=== PATIENT | female | born 1990 | race Caucasian/White ===

== ENCOUNTER → 2021-11-04 | Outpatient (CLI) | payer OTHER, SELFPAY ==
--- NOTE | 2021-11-04 15:50 | VDLE_ITS ---
Reason For Study: Pain and swelling RIGHT GSV is normal. CFV is compressible, spontaneous, phasic, competent and demonstrates normal augmentation. FV is compressible, spontaneous, phasic, competent and demonstrates normal augmentation. POP V is compressible, spontaneous, phasic, competent and demonstrates normal augmentation. T/P Trunk is compressible. PTV is compressible. RT PerV is compressible. Procedure This is a venous duplex using B-mode, color flow and spectral Doppler. Exam performed in department. A preliminary report was called and/or faxed to S[facility]. VL/Venous Duplex US, Unilateral Interpretation Summary There is no evidence of right lower extremity deep vein thrombosis. Right great saphenous vein appears patent and compressible segmentally. Ordering Physician: Mia Espino Performed By: Nataliia Benjamin RVT
== END | disposition home or self-care (01) ==
PROVIDERS: Referring Provider Obstetrics & Gynecology; Visit Provider Obstetrics & Gynecology
DX: M79.604 Pain in right leg (principal); M79.89 Other specified soft tissue disorders
CPT/HCPCS: 93971

== ENCOUNTER 2021-12-31 12:00 | Inpatient (IN) | payer OTHER, SELFPAY ==
[2021-12-31] VITALS (25 sets, daily range): BP systolic 113–144; BP diastolic 63–81; PULSE 88–127; TEMP 36.5–37.4; O2SAT 97–100; BMI 30.8
[2021-12-31 11:56] LABS: ROM Internal Control Test YES-OK TO RESULT pt. (Internal QC)
[2021-12-31 11:57] LABS: ROM Patient Test POSITIVE (Negative)
[2021-12-31] MEDS: 0.9% Saline Lock 10 ML Syringe IV (12:45)
[2021-12-31 13:02] LABS: Absolute Lymphocyte Count 1.38 X10^3/uL (0.83-4.51); Absolute Neutrophil Count 11.1 X10^3/uL (2.0-7.7); Basophil# 0.05 X10^3/uL; Basophil% 0.4 % (0-1); Eosinophils% 0.7 % (0-5); Hematocrit 39.6 % (37-47); Hemoglobin 13.1 g/dL (12.0-15.0); Lymphocyte # 1.38 X10^3/ul (0.83-4.51); Lymphocyte % 10.1 % (19-41); Mean Corp Hgb Conc 33.1 g/dL (32-36); Mean Corpuscular Hgb 29.6 pg (27.0-32.0); Mean Corpuscular Volume 89.6 fL (81-99); Mean Platelet Vol. 9.3 fl (6.2-12.0); Monocyte# 0.93 X10^3/uL; Monocyte% 6.8 % (0-10); NRBC Flagged by Analyzer 0 % (0-5); Neutrophil # 11.11 X10^3/uL (2.7-7.7); Neutrophil % 81.3 % (47-70); Platelet Count 257 K/mm3 (150-450); RBC Distribution Width CV 13.8 % (11.6-14.6); RBC Distribution Width SD 44.8 fl (35.1-43.9); Red Blood Count 4.42 M/mm3 (4.2-5.4); White Blood Count 13.7 K/mm3 (4.4-11.0)
--- NOTE | 2021-12-31 17:35 | PCM.HP.OB ---
HPI - General General Date of Admission: 12/31/21 HPI Narrative СЕРГЕЙ MCKENZIE, is a 31 F at 40w4d who presents with SROM around 10 am. Contractions increased in pain and intensity and presented to labor and delivery. [facility] Medical History (Updated 12/31/21 @ 17:40 by Melvi Resendiz CNM) Thalassemia carrier Home Medications vit no.37-iron fum 29 mg iron-folic acid 1 mg chewable tablet (PreNata) 1 tab PO DAILY 12/31/21 [History Last Taken 12/31/21 08:00] Allergy/AdvReac Type Severity Reaction Status Date / Time amoxicillin Allergy Severe Rash Verified 07/11/21 12:07 Surgical History History of surgery Social History Smoking Status: Never smoker History Elective abortions Hx Para 0 Spontaneous abortions Hx # Term Pregnancies Ectopic pregnancies Hx # Pregnancies Multiple births # of living children NST FHR Rate Baby A Baseline: 135, increases, no decreases. Category 1 IA Uterine Activity:: every 2-4 minutes, strong ROS Constitutional Constitutional: Reports systems reviewed and no addt'l complaints, except as documented; Denies headache(s) Eyes Eyes: Denies acute decrease in peripheral vision, blurry vision or change in vision ENT HEENT: Reports systems reviewed and no addt'l complaints, except as documented Cardiovascular Cardiovascular: Denies chest pain or dizziness Respiratory/Chest Respiratory/Chest: Denies cough, dyspnea, dyspnea on exertion, shortness of breath at rest or shortness of breath with exertion Gastrointestinal Gastrointestinal: Denies abdominal pain, diarrhea, nausea or vomiting Genitourinary Genitourinary: Denies abdominal discomfort or movement Musculoskeletal Musculoskeletal: Denies limited range of motion Integumentary Integumentary: Reports systems reviewed and no addt'l complaints, except as documented Neurologic Neurologic: Reports systems reviewed and no addt'l complaints, except as documented Psychiatric Psychiatric: Reports systems reviewed and no addt'l complaints, except as documented Endocrine Endocrinology: Reports systems reviewed and no addt'l complaints, except as documented Hematologic/Lymphatic Hematologic/Lymphatic: Reports systems reviewed and no addt'l complaints, except as documented Allergic/Immunologic Allergic/Immunologic: Reports systems reviewed and no addt'l complaints, except as documented Vital Signs Vital Signs Vital Signs: 12/31/21 11:36 12/31/21 11:36 12/31/21 11:34 Temperature Temperature Source Temporal Pulse Rate 102 H Blood Pressure 128/80 H BP Systolic 128 BP Diastolic 80 Pulse Ox 12/31/21 11:34 12/31/21 11:34 12/31/21 13:43 Temperature 98.7 F Temperature Source Pulse Rate Blood Pressure 138/63 H BP Systolic 138 BP Diastolic 63 Pulse Ox 98 12/31/21 13:43 12/31/21 13:44 12/31/21 13:44 Temperature Temperature Source Temporal Pulse Rate 91 Blood Pressure BP Systolic BP Diastolic Pulse Ox 98 12/31/21 13:44 12/31/21 14:21 12/31/21 14:21 Temperature 98.3 F Temperature Source Pulse Rate 88 Blood Pressure 139/76 H BP Systolic 139 BP Diastolic 76 Pulse Ox 12/31/21 14:21 12/31/21 14:22 12/31/21 14:22 Temperature Temperature Source Temporal Pulse Rate Blood Pressure BP Systolic BP Diastolic Pulse Ox 97 97 12/31/21 14:22 12/31/21 16:02 12/31/21 16:02 Temperature 97.7 F L Temperature Source Pulse Rate 102 H Blood Pressure 128/71 H BP Systolic 128 BP Diastolic 71 Pulse Ox 12/31/21 16:04 12/31/21 16:04 12/31/21 16:01 Temperature Temperature Source Temporal Pulse Rate 101 H Blood Pressure BP Systolic BP Diastolic Pulse Ox 98 12/31/21 16:01 12/31/21 16:01 12/31/21 16:44 Temperature 97.9 F Temperature Source Pulse Rate Blood Pressure 119/67 BP Systolic 119 BP Diastolic 67 Pulse Ox 98 12/31/21 16:44 12/31/21 16:43 12/31/21 16:43 Temperature Temperature Source Temporal Pulse Rate 127 H Blood Pressure BP Systolic BP Diastolic Pulse Ox 98 12/31/21 16:43 Temperature 98.4 F Temperature Source Pulse Rate Blood Pressure BP Systolic BP Diastolic Pulse Ox Weight Weight: 197 lb Body Mass Index (BMI) 30.8 Physical Exam Const alert and oriented x3 General Appearance: cooperative Orientation / Consciousness: awake, oriented to person, oriented to place and oriented to time Exam Limitations: no limitations HEENT normocephalic Head and Scalp: normal to inspection, normocephalic and atraumatic Face and Sinus: normal facial exam Eyes General Eye: normal appearance of both eyes Neck full ROM Chest Chest: symmetrical chest wall rise Resp normal respiratory effort and normal air movement Auscultation: clear to auscultation bilaterally Cardio regular rate, regular rhythm, S1 normal heart sound, S2 normal heart sound, no murmurs, no rub, no gallops and no clicks GI normal to inspection, nondistended, normoactive bowel sounds and non-tender appearance of the vagina normal Narrative: 3cm/80%/-2 per nursing exam. ROM plus positive Bladder / Kidney Exam: no CVA tenderness Back/Spine normal ROM Extremity normal to inspection and full ROM Skin no rashes or lesions noted Neuro oriented x3, CN's II-XII intact bilaterally and moves all extremities Sensorium / Orientation: awake, alert and oriented to person Motor Exam: clonus absent Deep Tendon Reflexes: Rt Patellar (L4): 2+ and Lt Patellar (L4): 2+ Labs Labs Labs: Blood Type O POSITIVE Antibody Screen NEGATIVE Hct 39.6 % (37-47) Hgb 13.1 g/dL (12.0-15.0) Hep C positive, Hep C confirmation screen negative HepB negative HIV negative RPR negative O positive GC/CT negative GBS negative Rubella Immune Assessment & Plan (1) SROM (spontaneous rupture of membranes): (2) Term : PLAN: Plan 1) Admit to labor and delivery 2) Routine labs 3) IV saline lock 4) IA after reactive NST 5) Would like expectant management, declines pitocin at this time 6) Would like unmedicated , hydrotherapy and nitrous for pain relief 7) collaborative physician and updated on patient status and plan of care.
[2022-01-01] VITALS (52 sets, daily range): BP systolic 94–253; BP diastolic 54–167; PULSE 77–137; RESP 16–18; TEMP 36.2–37.8; O2SAT 81–99
[2022-01-01] MEDS: LACTATED RINGERS 500 ML 999 ML IV (03:32)
[2022-01-01] MEDS: Lactated Ringers 1,000 ML 200 ML IV ×2 (03:32→09:54)
[2022-01-01] MEDS: fentaNYL-bupivacaine (epidural) 100 ML BAG EPIDURAL ×2 (04:35→08:47)
--- NOTE | 2022-01-01 11:50 | PCM.PN.BLA ---
Progress Note See delivery note by Faraz Resendiz. I was called to evaluate patient for possible vacuum-assisted delivery. Patient pushing at +3 station meconium fluid. heart rate tracing with recurrent late and variable decelerations. Patient was counseled on vacuum use including but not limited to vaginal lacerations, scalp lacerations, brain bleed. Patient agreed to proceed. Patient has epidural anesthesia that is adequate. Silva catheter is draining the bladder. Fetus is in the DILSHAD position. Estimated weight 8 pounds. Vaginal exam adequate pelvic exam. The vacuum was placed on the flexion point. The vacuum was then pumped up to the green zone 500 mmHg- pt had good maternal pushing efforts. Total 2 pulls with 2 contractions. No pop offs. The 's head was delivered the vacuum was removed and at this time certified nurse preschool teacher aide Faraz Resendiz took over delivery. Please see her OB delivery note for further details.
[2022-01-01] MEDS: Oxytocin 30 units/NS 500 ml 30 UNITS/500 ML IV.SOLN 334 UNITS IV (11:52)
--- NOTE | 2022-01-01 12:15 | EX.PCM.OBRPT ---
Assessment & Plan (1) Vacuum extractor delivery, delivered: (2) Second degree laceration of perineum, delivered, current hospitalization: COMMENT: acute blood loss anemia, check CBC later today. patient workig on . Desires d/c later today if ok w/ peds (3) Vaginal delivery: Maternal Data Information Final STEFANO: 12/27/21 Vaginal Delivery Operative Information Date of Procedure: 01/01/22 Pre-Operative Diagnosis: active labor Post-Operative Diagnosis: Surgery / Procedure Performed: Spontaneous Vaginal Delivery Type of Anesthesia: Epidural Estimated Blood Loss: 400 ml Time of Delivery: 11:47 Findings Description of Procedure: Progressed to complete dilation with urge to push. After extended pushing efforts, +3 station, FHT with minimal variability and late/variable decelerations. collaborative physician called for vacuum extraction due to need for further pushing efforts. Ship Construction Teacher and respiratory called to delivery for VAVD and meconium stained fluid. Vaginal vacuum extraction of head by and remainder of delivered by me. VAVD of viable male infant over 2nd degree perineal laceration. head delivered with body forthcoming after improved maternal pushing efforts. Infant placed on maternal abdomen, mouth and nares suctioned for secretions, strong cry and vigorous. Cord gases obtained. Pitocin started for active 3rd stage management with patient consent. Cord clamped and cut after pulsations ceased by FOB. Placenta delivered intact via amy, 3 vessel cord, send to pathology. Perineum inspected and revealed 2nd degree perineal laceration. Repaired under epidural analgesia and 3.0 vicryl rapide. vaginal sweep completed. sponge and instrument count correct. EBL 400ml and hemostasis achieved. Mom and baby stable, planning to breastfeed, family bonding well. Presentation: TRUDY Amniotic Membrane Rupture Type: Spontaneous Amniotic Fluid Description: Lightly stained meconium Placental Delivery Description: Spontaneous Placenta Disposition: Sent to Pathology Cord Vessel Description: 3 Vessels Cord Entanglement: None Infant A Gender: Male (1 minute): 8 (5 minute): 9 Delayed Cord Clamping: Yes Post Vaginal Delivery Medications Given After Delivery: IV Pitocin Episiotomy Description: None Laceration: 2nd degree Complication Complications: - (Vacuum extraction )
--- NOTE | 2022-01-01 12:16 | PLAC_PTH ---
PATIENT: СЕРГЕЙ MCKENZIE LOC: [facility] U#:[id number] AGE/SX: 31/F ROOM: WP021 RE12/31/[address]: Dr. Orquidea Collins, MDDOB: 1990 BED: 1 DIS: 01/02/2022 SPEC #: [id number] RECD: 01/01/22 13:03 STATUS: FLORES JARETT #: [id number] ERIK: 01/01/22 12:[address]: Orquidea Collins DEPT: SURGICAL PATHOLOGY RECD BY: [place] Sylvester ENTERED: 01/02/22 07:15 SP TYPE: PLACENTA OT DR: No Primary Care Phys Tissues: Placenta, NOS Procedures: Surgery Specimen Level V HEADER OPERATION: Vaginal delivery PRE-OP DIAGNOSIS: Meconium TISSUE SUBMITTED: Placenta MICROSCOPIC DIAGNOSIS Placenta: Placental disc - third trimester placenta (571 gm). - Moderate to marked acute vasculitis of subamniotic blood vessels. - Focal area of peripheral intraparenchymal hemorrhage (1 cm in greatest dimension). - Focal increased calcifications. Membranes ? marked acute chorioamnionitis. Umbilical cord - three blood vessels and moderate to marked acute funisitis. SJ:becky 01/03/2022 MICROSCOPIC DESCRIPTION Slides are reviewed. GROSS DESCRIPTION SPECIMEN: PLACENTA / CLINICAL INFORMATION: A. Weight: 4.055 kg B. Gestational Age: 40 weeks C. Sex: Male PLACENTAL WEIGHT (POST FIXATION): 571 gm PLACENTAL DIMENSIONS: 23 x 17 x 3 cm PLACENTAL SHAPE: Usual ovoid PLACENTAL WEIGHT FOR GESTATIONAL AGE: Within 10-99th percentile MEMBRANES - Present A. Insertion: Marginal B. Site of rupture from edge: 6 cm from edge of placental disc C. Color of membrane: green and mucoidy, consistent with meconium staining D. Abnormalities: None UMBILICAL CORD - Present A. Color: Pham-cole B. Insertion: Paracentral C. Length: 36 cm D. Diameter: 1 cm E. Number of vessels: Three F. Abnormalities: None PLACENTAL DISC - Present A. Color of surface: Pham-cole B. surface abnormalities: Membranes are greenish and consistent with meconium staining. C. Maternal cotyledons: Intact with minimal tears. Diffuse increased punctate calcifications are noted. D. Attached retro placental clot: No clot E. Cut surface: Dark red and spongy F. Lesions: Sections reveal a pham, indurated area in the peripheral portion of the placenta measuring 1 cm in greatest dimension. G. Separate clot: Absent SECTIONS SUBMITTED: 1. Membrane roll 2. Cord, maternal end 3. Cord, end, lesion 4. Placental disc, and maternal surfaces 5. Placental disc, and maternal surfaces 6. Placental disc, and maternal surfaces SJ:becky 01/02/2022 TC:2 CPT: 94423
[2022-01-01 13:04] LABS: Pathology Specimen OB SEE PATHOLOGY REPORT
--- NOTE | 2022-01-01 15:15 | NURSING ---
Report received from Ashley VICENTE, taking over pt care at this time.
[2022-01-01] MEDS: Ibuprofen 600 MG Tablet PO (19:38)
--- NOTE | 2022-01-01 19:48 | CM.ED ---
SW called applied technologist Elizabeth and she confirmed with patient's RN that there is NO SW consult for this patient. Leesa HUBBARD
[2022-01-02] VITALS (7 sets, daily range): BP systolic 100–121; BP diastolic 54–72; PULSE 77–98; RESP 16; TEMP 35.8–36.6
[2022-01-02 05:03] LABS: Hematocrit 29.7 % (37-47); Hemoglobin 9.9 g/dL (12.0-15.0); Mean Corp Hgb Conc 33.3 g/dL (32-36); Mean Corpuscular Hgb 29.9 pg (27.0-32.0); Mean Corpuscular Volume 89.7 fL (81-99); Platelet Count 186 K/mm3 (150-450); RBC Distribution Width CV 14.2 % (11.6-14.6); RBC Distribution Width SD 46.4 fl (35.1-43.9); Red Blood Count 3.31 M/mm3 (4.2-5.4); White Blood Count 18.9 K/mm3 (4.4-11.0)
[2022-01-02] MEDS: Ibuprofen 600 MG Tablet PO (07:40)
--- NOTE | 2022-01-02 09:53 | PCM.PN.OB ---
Subjective Subjective Pain well controlled, average lochia Objective Data Objective Data Vital Signs: Vital Signs Temp Pulse Resp BP Pulse Ox O2 Del Method 97.4 F L 98 16 116/61 98 Room Air 01/02/22 08:12 01/02/22 08:12 01/02/22 08:12 01/02/22 08:12 01/01/22 16:45 01/02/22 05:06 Oxygen Delivery Method Room Air Weight: 89.358 kg Body Mass Index (BMI) 30.8 Intake & Output: Intake and Output for Last 24 Hours 12/31/21 01/01/22 01/02/22 23:59 23:59 23:59 Intake Total 2403.33 / 2403.33 Output Total 600 / 600 Balance 1803.33 / 1803.33 Lab / Micro Data Result Diagrams: 01/02/22 04:48 Labs: Laboratory Results - last 24 hr 01/02/22 04:48: WBC 18.9 H, RBC 3.31 L, Hgb 9.9 L, Hct 29.7 L, MCV 89.7, MCH 29.9, MCHC 33.3, RDW Std Deviation 46.4 H, RDW Coeff of Megan 14.2, Plt Count 186, MPV 9.0 Micro: Microbiology 12/31/21 13:05 Nasal Secretion SARS-CoV-2 Antigen (Rapid) - Final Physical Exam Const alert and no apparent distress Narrative: Fundus firm, below umbilicus. Assessment & Plan (1) Vacuum extractor delivery, delivered: PLAN: PPD #1 s/p vacuum assisted v aginal delivery. Doing well. (2) Second degree laceration of perineum, delivered, current hospitalization: COMMENT: acute blood loss anemia, check CBC later today. patient workig on . Desires d/c later today if ok w/ peds
[2022-01-02 12:30] LABS: Hematocrit 32.1 % (37-47); Hemoglobin 10.5 g/dL (12.0-15.0); Mean Corp Hgb Conc 32.7 g/dL (32-36); Mean Corpuscular Hgb 29.9 pg (27.0-32.0); Mean Corpuscular Volume 91.5 fL (81-99); Mean Platelet Vol. 9.4 fl (6.2-12.0); Platelet Count 242 K/mm3 (150-450); RBC Distribution Width CV 14.4 % (11.6-14.6); Red Blood Count 3.51 M/mm3 (4.2-5.4); White Blood Count 17.9 K/mm3 (4.4-11.0)
--- NOTE | 2022-01-02 13:16 | DS.PCM_ITS ---
Providers Date of Admission: 12/31/21 Primary Care Physician: No Primary Care Phys Reason For Visit: LABOR AND DELIVERY VAG DEL Diagnosis Discharge Diagnosis (1) Vacuum extractor delivery, delivered: Status: Acute Code(s): O75.9 - Complication of labor and delivery, unspecified Plan: PPD #1 s/p vacuum assisted v aginal delivery. Doing well. (2) Second degree laceration of perineum, delivered, current hospitalization: Status: Acute Code(s): O70.1 - Second degree perineal laceration during delivery Medications at Discharge Home Medications vit no.37-iron fum 29 mg iron-folic acid 1 mg chewable tablet (PreNata) 1 tab PO DAILY 12/31/21 Hospital Course Operations - (Vacuum assisted vaginal delivery 01/01/22) Procedures None Summary of Care Provided Hospital Course: 31-year-old female admitted in labor. Labor progressed to complete and pushing. She then had a vacuum-assisted vaginal delivery with a second-degree laceration. Laceration was repaired. By day #1 patient was ambul ating, urinating tolerating regular diet. She had mild acute blood loss anemia. Patient was stable and desired discharge home. She is to follow-up in the office in 7 to 10 days or as needed and 6 weeks Weight / BMI Weight Weight: 89.358 kg Body Mass Index (BMI) 30.8 ABG / Lab / Microbiology Data Result Diagrams: 01/02/22 12:00 Laboratory: Laboratory Results - last 24 hr 01/02/22 04:48: WBC 18.9 H, RBC 3.31 L, Hgb 9.9 L, Hct 29.7 L, MCV 89.7, MCH 29.9, MCHC 33.3, RDW Std Deviation 46.4 H, RDW Coeff of Megan 14.2, Plt Count 186, MPV 9.0 01/02/22 12:00: WBC 17.9 H, RBC 3.51 L, Hgb 10.5 L, Hct 32.1 L, MCV 91.5, MCH 29.9, MCHC 32.7, RDW Std Deviation 48.0 H, RDW Coeff of Megan 14.4, Plt Count 242, MPV 9.4 Microbiology: Microbiology 12/31/21 13:05 Nasal Secretion SARS-CoV-2 Antigen (Rapid) - Final D/C Instructions May resume sexual activity in: 6 weeks Please Follow Up With: Giana Quesada MD When: Follow up with our office in 1-2 and 6 weeks or as needed. [phone] Meaningful Use Info Meaningful Use Diagnoses (Choose all that apply): None applicable Discharge Plan Admission Admit Date/Time: 12/31/21 12:00 Primary Reason for Your Visit: labor and delivery Attending Provider: Orquidea Collins Primary Care Provider: Care Physician,Randi Primary Discharge Orders/Prescriptions Prescriptions: No Action PreNata 29 mg iron- 1 mg Tablet,Chewable 1 tab PO DAILY Referrals / Follow Up: Care Physician,No Primary [Primary Care Provider] - Disposition Disposition (needs filled in before D/C Order can be placed): Home, Self Care
== END 2022-01-02 16:15 | disposition home or self-care (01) | DRG 807 ==
LOC: WPOUT 12:07 → WP 12:07
PROVIDERS: Advanced Practice Midwife; Obstetrics & Gynecology; Admitting Provider Obstetrics & Gynecology; Referring Provider Obstetrics & Gynecology; Visit Provider Obstetrics & Gynecology
DX: O77.0 Labor and delivery complicated by meconium in amniotic fluid (principal); Z37.0 Single live birth; O66.5 Attempted application of vacuum extractor and forceps; O70.1 Second degree perineal laceration during delivery; O76 Abnormality in fetal heart rate and rhythm complicating labor and delivery; Z3A.40 40 weeks gestation of pregnancy
CPT/HCPCS: 59025; 59050; 84112; 85025; 85027; 86850; 86900; 86901; 87426; 88307; 99218; J7120; A4216; G0378

== ENCOUNTER 2024-10-29 17:20 | Inpatient (IN) | payer OTHER, SELFPAY ==
[2024-10-29] VITALS (7 sets, daily range): BP systolic 117–145; BP diastolic 64–78; PULSE 77–100; RESP 16; TEMP 36.8; O2SAT 96–98; BMI 30.8
[2024-10-29 18:05] LABS: Absolute Lymphocyte Count 2.11 X10^3/uL (0.83-4.51); Absolute Neutrophil Count 10.2 X10^3/uL (2.0-7.7); Basophil# 0.05 X10^3/uL; Basophil% 0.4 % (0-1); Eosinophil# 0.14 X10^3/uL; Hematocrit 37.2 % (37-47); Hemoglobin 12.7 g/dL (12.0-15.0); Lymphocyte # 2.11 X10^3/ul (0.83-4.51); Lymphocyte % 15.7 % (19-41); Mean Corp Hgb Conc 34.1 g/dL (32-36); Mean Corpuscular Hgb 29.3 pg (27.0-32.0); Mean Corpuscular Volume 85.9 fL (81-99); Mean Platelet Vol. 9.3 fl (6.2-12.0); Monocyte# 0.84 X10^3/uL; Monocyte% 6.3 % (0-10); NRBC Flagged by Analyzer 0 % (0-5); Neutrophil # 10.18 X10^3/uL (2.7-7.7); Platelet Count 248 K/mm3 (150-450); RBC Distribution Width CV 13.1 % (11.6-14.6); RBC Distribution Width SD 40.8 fl (35.1-43.9); Red Blood Count 4.33 M/mm3 (4.2-5.4); White Blood Count 13.4 K/mm3 (4.4-11.0)
--- NOTE | 2024-10-29 18:18 | HP.PCM.OB_ITS ---
HPI - General General Date of Admission: 10/29/24 HPI Narrative СЕРГЕЙ MCKENZIE, is a 33 F who presents in spontaneous onset of labor. Maternal Data Information STEFANO Calculator Estimated Delivery Date Method Current WG Current Estimate 11/04/24 Manual 39w 1d PFSH PFS Medical History (Updated 10/29/24 @ 18:26 by Indira James CNM) Second degree laceration of perineum, delivered, current hospitalization Vacuum extractor delivery, delivered Thalassemia carrier Home Medications ?Medication ?Instructions ?Recorded ?Last Taken ?Type vit no.37-iron fum 29 mg 1 tab PO DAILY pregn victor manuel 12/31/21 12/31/21 08 :00 History iron-folic acid 1 mg chewable tablet (PreNata) Allergy/AdvReac Type Severity Reaction Status Date / Time amoxicillin Allergy Severe Rash Verified 07/11/21 12:07 Surgical History (Updated 10/29/24 @ 18:26 by Indira James CNM) History of surgery Social History Smoking Status: Never smoker History Elective abortions Hx Para 1 Spontaneous abortions Hx # Term Pregnancies Ectopic pregnancies Hx # Pregnancies Multiple births # of living children NST FHR Rate Baby A Baseline: 140 Variability:: Moderate Accelerations:: 15 x 15 Decelerations:: None NST Reactive:: Yes FHR Category:: Category I Uterine Activity:: TOCO reading every 2-3 minutes ROS Eyes Eyes: Denies blurry vision, change in vision or spots in vision ENT HEENT: Denies dizziness or headache(s) Cardiovascular Cardiovascular: Denies abdominal pain, chest pain or dyspnea Respiratory/Chest Respiratory/Chest: Denies cough, dyspnea, shortness of breath at rest or shortness of breath with exertion Gastrointestinal Gastrointestinal: Denies abdominal pain, diarrhea or vomiting Genitourinary Genitourinary: Denies change in urinary stream, difficulty urinating or dysuria Musculoskeletal Musculoskeletal: Reports none Integumentary Integumentary: Denies rash Neurologic Neurologic: Denies dizziness, headache(s), memory loss or weakness Psychiatric Psychiatric: Reports none Physical Exam Const alert, oriented x3 and no apparent distress General Appearance: cooperative Orientation / Consciousness: awake Exam Limitations: no limitations HEENT normocephalic Head and Scalp: normal to inspection Eyes General Eye: normal appearance of both eyes Neck full ROM and no lymphadenopathy Lymph Lymphatic: no lymphadenopathy noted Chest inspection of chest normal Resp normal respiratory effort, normal air movement and clear to auscultation bilaterally Effort and Inspection: able to speak in complete sentences and symmetric chest movement Cardio regular rate and regular rhythm GI normal to inspection, nondistended, normoactive bowel sounds Manual OB Exam: presentation cephalic Back/Spine normal ROM Extremity full ROM and no calf tenderness Skin no rashes or lesions noted General Skin Exam: no breakdown Neuro oriented x3 and CN's II-XII intact bilaterally Psych mental status grossly normal and thought process normal Labs Labs Labs: Blood Type O POSITIVE Antibody Screen NEGATIVE Hct 37.2 % (37-47) Hgb 12.7 g/dL (12.0-15.0) Syphilis Total Ab Pending Rhogam given: No Assessment & Plan (1) 39 weeks gestation of : (2) Spontaneous onset of labor: (3) AMA (advanced maternal age) multigravida 35+: (4) History of vacuum extraction assisted delivery: (5) Excessive growth affecting management of mother, antepartum: COMMENT: EFW 99%m AC>99% @33 weeks (6) History of delivery of macrosomal : PLAN: Plan CE /- Bag of water intact Admit to labor and delivery Routine labs GBS negative Desires unmedicated labor and delivery Hx of VAVD in 2021 of 9 lb. 4oz baby Declines AROM at this time but will consider if not making cervical change Dr. Quesada notified of admission and is collaborating physician
[2024-10-29 18:28] LABS: Syphilis Antibodies Nonreactive (Nonreactive)
--- NOTE | 2024-10-29 20:01 | PCM.PN.CNM ---
Subjective Subjective Patient breathing through contractions. Requesting Nitrous Oxide for pain control. Objective Data Objective Data Vital Signs: Vital Signs Temp Pulse Resp BP Pulse Ox 98.2 F 77 16 126/72 H 98 10/29/24 19:37 10/29/24 19:38 10/29/24 19:37 10/29/24 19:38 10/29/24 19:38 Weight: 196 lb 12.8 oz Body Mass Index (BMI) 30.8 Lab / Micro Data 10/29/24 17:50 Labs: Laboratory Results - last 24 hr 10/29/24 17:50: WBC 13.4 H, RBC 4.33, Hgb 12.7, Hct 37.2, MCV 85.9, MCH 29.3, MCHC 34.1, RDW Std Deviation 40.8, RDW Coeff of Megan 13.1, Plt Count 248, MPV 9.3, Immature Gran % (Auto) 0.600, Neut % (Auto) 76.0 H, Lymph % (Auto) 15.7 L, [place] % (Auto) 6.3, Eos % (Auto) 1.0, Baso % (Auto) 0.4, Absolute Neuts (auto) 10.2 H, Absolute Lymphs (auto) 2.11, Nucleated RBC % 0, Syphilis Total Ab Nonreactive, Blood Type O POSITIVE, Antibody Screen NEGATIVE Assessment & Plan (1) Hepatitis C antibody positive: COMMENT: Hep. C RNA is negative on 04/27/24 (2) History of delivery of macrosomal : (3) Excessive growth affecting management of mother, antepartum: COMMENT: EFW 99%m AC>99% @33 weeks (4) History of vacuum extraction assisted delivery: (5) AMA (advanced maternal age) multigravida 35+: (6) Spontaneous onset of labor: (7) 39 weeks gestation of : (8) Thalassemia carrier: PLAN: Plan NST reactive Contractions palpating mod-strong CE 6.5/90/0- very thin Requesting expectant management at this time- does not want AROM or Pitocin unless medically needed Anticipate
[2024-10-29] MEDS: Oxytocin 15 Units/NS 250ml 15 UNITS/250 ML IV.SOLN 334 UNITS IV (23:59)
[2024-10-30] VITALS (35 sets, daily range): BP systolic 101–131; BP diastolic 56–80; PULSE 70–97; RESP 16–18; TEMP 36.5–36.9; O2SAT 90–100
[2024-10-30] MEDS: Lidocaine 1% (20 ml mdv) 20 ML Vial INFILT (00:23)
[2024-10-30] MEDS: Oxytocin 15 Units/NS 250ml 15 UNITS/250 ML IV.SOLN 83 UNITS IV (00:30)
--- NOTE | 2024-10-30 00:32 | EX.PCM.OBVAG ---
Assessment & Plan (1) (spontaneous vaginal delivery): (2) Perineal laceration, second degree, delivered: (3) Shoulder dystocia, delivered: Maternal Data Information STEFANO Calculator Estimated Delivery Date Method Current WG Current Estimate 11/04/24 Manual 39w 2d Vaginal Delivery Maternal Presentation Maternal Presentation: Active Labor Maternal Presentation: at 39.1 weeks gestation that presented in spontaneous, active labor. Type of Induction: Amniotomy (augmentation ) Vaginal Delivery Information Procedure Performed: Spontaneous Vaginal Delivery and Shoulder Dystocia Maneuvers Delivery maneuver performed for shoulder dystocia: Posterior arm extraction (Anterior arm extracted) and Kierra Position (Knee Chest) (Patient already in this position) Head to body interval: 00:51 (51 seconds total) Surgeon/Practitioner: Indira James Date of Procedure: 10/29/24 Pre-Procedure Diagnosis: Term gestation, spontaneous onset of labor Post-Procedure Diagnosis: , Live male infant Type of anesthesia: Local with 1% Lidocaine Estimated Blood Loss: 300 Time of Delivery: 23:57 Findings Description of procedure: Patient progressed to complete dilation. Feeling urge to push. Patient in hands and knees position. With good maternal effort, head delivered and turtle sign immediately identified. Remained in hands and knees position and I was able to feel anterior arm and released anterior shoulder. The remainder of infant body delivered immediately without any force, delay, or traction. Total of 51 seconds. Vigorous male was passed underneath patient and placed directly skin to skin. Pitocin IV started for active management of the third stage of labor. Assisted patient to lithotomy position. 3 vessel cord clamped and cut after delay. Cord blood collected and sent. Placenta delivered spontaneously and intact. A second degree laceration was repaired in usual fashion using 3-0 Vicryl Rapid after local anesthetic placed. Hemostasis obtained. Vaginal sweep and rectal exam performed. Fundus is firm 2 below U and bleeding is hemostatic. Sponge and sharps counts correct. Patient and infant bonding well at this time. Dr. Quesada notified of delivery. Routine post orders placed. 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
--- NOTE | 2024-10-30 09:13 | PCM.PN.CNM ---
Subjective Subjective Patient seen at bedside. Denies any pain. Ambulating and voiding without difficulty. Lochia decreasing. with minimal support. Objective Data Objective Data Vital Signs: Vital Signs Temp Pulse Resp BP Pulse Ox O2 Del Method 98.2 F 87 16 117/71 100 Room Air 10/30/24 04:25 10/30/24 04:29 10/30/24 04:25 10/30/24 04:29 10/30/24 02:31 10/30/24 04:25 Oxygen Delivery Method Room Air Weight: 196 lb 12.8 oz Body Mass Index (BMI) 30.8 Intake & Output: Intake and Output for Last 24 Hours 10/28/24 10/29/24 10/30/24 23:59 23:59 23:59 Intake Total 422.57 / 422.57 Output Total 602 / 602 Balance -179.43 / -179.43 Lab / Micro Data Attestation: I reviewed the patient's lab results. 10/29/24 17:50 Labs: Laboratory Results - last 24 hr 10/29/24 17:50: WBC 13.4 H, RBC 4.33, Hgb 12.7, Hct 37.2, MCV 85.9, MCH 29.3, MCHC 34.1, RDW Std Deviation 40.8, RDW Coeff of Megan 13.1, Plt Count 248, MPV 9.3, Immature Gran % (Auto) 0.600, Neut % (Auto) 76.0 H, Lymph % (Auto) 15.7 L, [facility] % (Auto) 6.3, Eos % (Auto) 1.0, Baso % (Auto) 0.4, Absolute Neuts (auto) 10.2 H, Absolute Lymphs (auto) 2.11, Nucleated RBC % 0, Syphilis Total Ab Nonreactive, Blood Type O POSITIVE, Antibody Screen NEGATIVE ROS Eyes Eyes: Denies blurry vision, change in vision or spots in vision ENT HEENT: Denies dizziness or headache(s) Cardiovascular Cardiovascular: Denies abdominal pain, chest pain or dyspnea Respiratory/Chest Respiratory/Chest: Denies cough, dyspnea, shortness of breath at rest or shortness of breath with exertion Gastrointestinal Gastrointestinal: Denies abdominal pain, diarrhea or vomiting Genitourinary Genitourinary: Denies change in urinary stream, difficulty urinating or dysuria Musculoskeletal Musculoskeletal: Reports none Integumentary Integumentary: Denies rash Neurologic Neurologic: Denies dizziness, headache(s), memory loss or weakness Physical Exam Const alert and no apparent distress General Appearance: cooperative and comfortable Exam Limitations: no limitations HEENT normocephalic Eyes General Eye: normal appearance of both eyes Neck full ROM General: normal visual inspection Chest Chest: symmetrical chest wall rise Resp normal respiratory effort and normal air movement Effort and Inspection: symmetric chest movement Auscultation: clear to auscultation bilaterally Cardio regular rate and regular rhythm GI normal to inspection, nondistended, normoactive bowel sounds Back/Spine normal ROM Extremity full ROM and no calf tenderness General Extremity: normal exam except as noted Skin no rashes or lesions noted Neuro oriented x3 Speech: speech normal Psych mental status grossly normal Thought Process: normal thought process Assessment & Plan (1) Shoulder dystocia, delivered: (2) Perineal laceration, second degree, delivered: (3) (spontaneous vaginal delivery): (4) Care and examination of lactating mother: PLAN: Plan PPD 1 support Pain control Anticipate discharge tomorrow
[2024-10-30] MEDS: Naproxen 500 MG Tablet PO (09:42)
[2024-10-30] MEDS: Acetaminophen 500 MG Tablet 1000 MG PO (20:18)
[2024-10-31] VITALS (9 sets, daily range): BP systolic 106–128; BP diastolic 55–75; PULSE 62–120; RESP 14–48; TEMP 36.6–36.9; O2SAT 98
--- NOTE | 2024-10-31 07:13 | DS.PCM_ITS ---
Providers Date of Admission: 10/29/24 Primary Care Physician: No Primary Care Phys Reason For Visit: VAGINAL DELIVERY Diagnosis Discharge Diagnosis (1) Shoulder dystocia, delivered: Status: Acute Code(s): O66.0 - Obstructed labor due to shoulder dystocia (2) Perineal laceration, second degree, delivered: Status: Acute Code(s): O70.1 - Second degree perineal laceration during delivery (3) (spontaneous vaginal delivery): Status: Acute Code(s): O80 - Encounter for full-term uncomplicated delivery (4) Care and examination of lactating mother: Status: Acute Code(s): Z39.1 - Encounter for care and examination of lactating mother Plan PPD 1 support Pain control Anticipate discharge tomorrow Medications at Discharge Home Medications vit no.37-iron fum 29 mg iron-folic acid 1 mg chewable tablet (PreNata) 1 tab PO DAILY 12/31/21 albuterol 90 mcg/actuation aerosol inhaler 90 mcg inhalation PRN Breathing 10/29/24 magnesium 200 mg tablet 200 mg PO DAILY Supplement 10/29/24 omega [id number]-[id number]-fish oil 1,600 mg-500 mg-800 mg/5 mL oral liquid (Fish Oil) 5 ml PO DAILY Supplement 10/29/24 acetaminophen 500 mg tablet 1,000 mg (2 x 500 mg) PO Q6H PRN PRN Pain 1-10 Or Fever #0 tabs 10/31/24 naproxen 500 mg tablet 500 mg PO Q8H PRN PRN Pain Score 1-10 #0 tabs 10/31/24 sennosides 8.6 mg-docusate sodium 50 mg tablet (Stimulant Laxative Plus) 1 - 2 tab PO DAILY PRN PRN Constipation #0 tabs 10/31/24 Hospital Course Operations None Procedures None Summary of Care Provided Minutes Spent on Discharge: 15 Hospital Course: Patient had vaginal delivery. Hospital course was uneventful. Physical Exam Narrative Patient seen at bedside. Denies pain. Ambulating and voiding without difficulty. Lochia decreased. Desires discharge home today. Const alert and oriented x3 General Appearance: Negative for in distress HEENT normocephalic Eyes General Eye: normal appearance of both eyes Neck General: normal visual inspection Chest Chest: symmetrical chest wall rise Resp normal respiratory effort and normal air movement Effort and Inspection: symmetric chest movement; Negative for tachypneic Auscultation: clear to auscultation bilaterally Cardio regular rate and regular rhythm Peripheral Pulses: pulses 2+ throughout GI normal to inspection, nondistended, normoactive bowel sounds Narrative: Ice to perineum OB / External & Speculum: vaginal bleeding and other Lochia decreasing Uterus Palpation: uterus fundus firm (Below U) Extremity normal to inspection, full ROM and normal capillary refill Skin no rashes or lesions noted Neuro oriented x3, CN's II-XII intact bilaterally and gait normal Psych mental status grossly normal, thought process normal and activity/motor behavior normal Weight / BMI Weight Weight: 196 lb 12.8 oz Body Mass Index (BMI) 30.8 ABG / Lab / Microbiology Data 10/29/24 17:50 D/C Instructions Discharge Diet: No restrictions Discharge Activity: Return to Normal Activity, No Restrictions, May Drive, May Shower and May Take a Tub Bath (Warm water only. No bath salts, soaps, bubbles) May resume sexual activity in: 6-8 weeks Weight Bearing Status: Weight bearing as tolerated Call your doctor if you observe: Fever of 101 or Higher, Inability to urinate, Using more than 1 pad per hour, Shortness of breath, Dizziness, Chest pain, Calf discomfort and Uncontrolled pain DC O2, CPAP, BIPAP Needs Home O2 Discharge instructions: No Please Follow Up With: [facility] Betty ALANIZ When: 2 weeks in office or virtual Meaningful Use Info Meaningful Use Meaningful Use Diagnoses (Choose all that apply): None applicable Ischemic Stroke Statin Dosing Therapy Reference: STATIN DOSE THERAPY REFERENCE: * Patients > 75 years receive moderate or high dose statin therapy. * Patients 75 years or YOUNGER should receive HIGH intensity statin dose unless contraindicated. You will be required to document reason for non-treatment if statin daily dose does not meet guidelines. HIGH DOSE STATIN THERAPY DAILY Atorvastatin > than or = to 40 mg Rosuvastatin > than or = to 20 mg Amlodipine + Atorvastatin > than or = to 2.5/40 mg Ezetimibe + Simvastatin 10/80 mg Simvastatin 80mg Discharge Plan Admission Admit Date/Time: 10/29/24 17:20 Primary Reason for Your Visit: Labor and Delivery Attending Provider: Indira James Primary Care Provider: Care Physician,No Primary Discharge Orders/Prescriptions Prescriptions: New sennosides-docusate sodium [Stimulant Laxative Plus] 8.6-50 mg Tablet 1 - 2 tab PO DAILY PRN PRN (Reason: Constipation) Qty: 0 0RF acetaminophen 500 mg Tablet 1,000 mg PO Q6H PRN PRN (Reason: Pain 1-10 Or Fever) Qty: 0 0RF naproxen 500 mg Tablet 500 mg PO Q8H PRN PRN (Reason: Pain Score 1-10) Qty: 0 0RF Continued PreNata 29 mg iron- 1 mg Tablet,Chewable 1 tab PO DAILY albuterol 90 mcg/actuation aerosol 90 mcg inhalation PRN magnesium 200 mg tablet 200 mg PO DAILY Fish Oil 1,600-500-800 mg/5 mL liquid 5 ml PO DAILY Referrals / Follow Up: Indira James CNM [Med Staff - Adv Practice Prof] - Care Physician,No Primary [Primary Care Provider] - Disposition Disposition (needs filled in before D/C Order can be placed): Home, Self Care
== END 2024-10-31 10:20 | disposition home or self-care (01) | DRG 807 ==
LOC: WP 17:20 → WPOUT 17:26 → WP 17:26
PROVIDERS: Admitting Provider Advanced Practice Midwife; Referring Provider Advanced Practice Midwife; Visit Provider Advanced Practice Midwife
DX: O36.63X0 Maternal care for excessive fetal growth, third trimester, not applicable or unspecified (principal); Z37.0 Single live birth; O66.0 Obstructed labor due to shoulder dystocia; O70.1 Second degree perineal laceration during delivery; O77.0 Labor and delivery complicated by meconium in amniotic fluid; O69.81X0 Labor and delivery complicated by cord around neck, without compression, not applicable or unspecified; Z3A.39 39 weeks gestation of pregnancy; Z87.59 Personal history of other complications of pregnancy, childbirth and the puerperium; Z14.8 Genetic carrier of other disease
CPT/HCPCS: 59025; 59050; 85025; 86780; 86850; 86900; 86901; 99221; G0378